=== PATIENT | female | born 1990 | race Asian ===

== ENCOUNTER 2016-12-06 16:30 | Emergency (ER) | payer OTHER ==
[~2016-12-06] VITALS: Ht 167.6 cm; Wt 73.4 kg
[2016-12-06] MEDS ORDERED: LIDOCAINE 2% MDV 20 ML VIAL SC ONE (17:45)
[2016-12-06] MEDS ORDERED: AUGM875T28 PO (18:16)
[2016-12-06 18:21] VITALS: BP 116/52
== END 2016-12-06 18:21 | disposition home or self-care (01) ==
LOC: M ED 16:30
DX: S61.213A Laceration without foreign body of left middle finger without damage to nail, initial encounter (principal); S61.215A Laceration without foreign body of left ring finger without damage to nail, initial encounter; W26.0XXA Contact with knife, initial encounter; Y92.139 Unspecified place military base as the place of occurrence of the external cause; Y93.89 Activity, other specified; Y99.1 Military activity